=== PATIENT | female | born 1980 | race Caucasian/White ===

== ENCOUNTER 2024-04-04 05:21 | Emergency (ER) | payer BC ==
[~2024-04-04] VITALS: Ht 162.6 cm; Wt 77.1 kg
[2024-04-04 05:36] VITALS: BP_SYST 119; PULSE 68; RESP 19; TEMP 97.7; O2SAT 97
[2024-04-04] MEDS: HYDROcodone/ACETAMIN 5-325 MG TAB (NORCO/ VICODIN) PO ONE (05:54)
[2024-04-04] MEDS ORDERED: IBUP-1969 PO (07:27)
[2024-04-04] MEDS ORDERED: HYDR-3917 PO (07:27)
[2024-04-04 07:37] VITALS: BP_SYST 111; PULSE 61; RESP 18; TEMP 97; O2SAT 98
== END 2024-04-04 07:38 | disposition home or self-care (01) ==
LOC: SED 05:21
DX: M54.12 Radiculopathy, cervical region (principal); M25.512 Pain in left shoulder
CPT/HCPCS: 72125-TC; 99284